=== PATIENT | female | born 1965 | race Caucasian/White ===

== ENCOUNTER 2018-03-01 13:23 | Emergency (ER) | payer OTHER ==
[2018-03-01 13:30] VITALS: TEMP 99; BMI 27.3
--- NOTE | 2018-03-01 13:56 | PDOC ---
Attending Attestation - HPI HPI: 03/01/18 14:42 The patient is a 52-year-old female, with a significant past medical history of chronic back pain, who presents to the ED with new onset of parathesia and change in sensation of her lower extremities. The patient states that she received her first epidural injection on 02/27/18 at [facility] with Dr. Lynn. Since then the patient has been experiencing prolonged parathesia in her lower extremities, which resolved after an extended PACU stay. She presents today because the parathesia returned in her left lower extremity and knee. She now is numb to pain and dull pressure in the left extremity. On exam, she states that her right lower extremity is now also beginning to feel numb. She also reports back pain that is worse than the normal back pain she experiences. She denies any fever, chills, nausea, vomiting, diarrhea, or abdominal pain. Denies any chest pain or shortness of breath. Denies any bowel or urinary incontinence. Allergies: ciprofloxacin, ciprofloxacin HCl PCP: Dr. Jackson Jamison <Eileen Morton - Last Filed: 03/01/18 14:42> - Resident Resident Name: Edwardo Haddad - ED Attending Attestation I have performed the following: I have examined & evaluated the patient, The case was reviewed & discussed with the resident, I agree w/resident's findings & plan, Exceptions are as noted - Physicial Exam PE: 03/01/18 16:48 Gen: aaox3, uncomfortable, cannot get comfortable on the stretcher Heart: +s1s2 reg lungs: cta b/l abd: soft, nt/nd +bs Ext: no c/c/e, decreased sensation L leg Back: +L paraspinal soft tissue swelling, midline ttp lumbar spine, pain with plantar flexion of both feet to lumbar spine, pain with straight leg raise b/l at 5degrees - Medical Decision Making 03/01/18 13:56 I, Dr. Brittny Bowie, DO, attest that this document has been prepared under my direction and personally reviewed by me in its entirety. I further attest, that it accurately reflects all work, treatment, procedures and medical decision -making performed by me. 03/01/18 14:45 a/p: 52yo female with midline back pain that radiates down L leg with numbness -soft tissue swelling just L lateral to spine, +midline ttp +straight leg raise b/l at 5 degrees -+palpation of the LLE increases pain to low back, plantar flexion of b/l feet increases pain, +paresthesias to LLE -concern give recent epidural injection to Lumbar spine by the [facility]-her pain management doc -will obtain labs, MRI w/wo to eval of epidural abscess -will medicate for pain -no signs of caude equina 03/01/18 16:48 pt with a UTI on labs pending MRI at this time will need abx for UTI <Brittny Bowie - Last Filed: 03/01/18 16:50>
--- NOTE | 2018-03-01 14:09 | PDOC ---
History of Present Illness - General Chief Complaint: Back Pain Stated Complaint: BACK PAIN, LT LEG NUMBNESS Time Seen by Provider: 03/01/18 13:51 History Source: Patient Exam Limitations: No Limitations - History of Present Illness Initial Comments: 03/01/18 14:19 52yo F with established history of chronic back pain who presents with worsening back pain and new parasthesia and changing sensorium in her lower extremities. Pt reports receiving an epidural injection for the first time this past at [facility] with Dr. Lynn. Pt states after her injection she had prolonged parasthesia in bilateral lower extremities however this resolved after an extended PACU stay. Pt reports recently at home her parasthesia returned in her left lower extremity and extended to her knee. Pt reports being numb to both pain and dull pressure. After her parasthesia she reports extreme sensitivity to touch inducing pain on her LLE and beginning RLE numbness. Pt also endorses back pain which has acutely worsened different in quality from her baseline. Pt denies any fever or chills, saddle parasthesias, incontinence, dysuria, or polyuria. Pt denies any current SOB, CP/discomfort, abdominal pain, diarrhea/constipation, n/v. Past History - Past Medical History Allergies/Adverse Reactions: Allergies Allergy/AdvReac Type Severity Reaction Status Date / Time ciprofloxacin [From Cipro] Allergy Verified 03/01/18 13:30 ciprofloxacin HCl Allergy Verified 03/01/18 13:30 [From Cipro] Sulfa (Sulfonamide Allergy Verified 03/01/18 13:30 Antibiotics) codeine AdvReac Low Blood Verified 03/01/18 13:30 Pressure oxycodone HCl [From Percocet] AdvReac Low Blood Verified 03/01/18 13:30 Pressure Home Medications: Ambulatory Orders Cholecalciferol (Vitamin D3) [Vitamin D] 1,000 unit PO DAILY 06/06/15 Cyanocobalamin (Vitamin B-12) [Vitamin B-12] 100 mcg PO DAILY 06/06/15 Metformin HCl [Metformin HCl ER] 500 mg PO BID 06/06/15 Multivitamins [Tab-A-Vit -] 1 tab PO DAILY 06/06/15 Lidocaine 5% Patch [Lidoderm Patch -] 1 patch TP DAILY #7 patch 03/01/18 Asthma: Yes (NO RECENT ATTACK) COPD: No Diabetes: Yes Disorders: Yes (ENDOMETRIOSIS., interstitial cystitis) Hypercholesterolemia: Yes - Surgical History Abdominal Surgery: Yes (Laparoscopy x2-EMDOMETRIOSIS) - Suicide/Smoking/Psychosocial Hx Smoking Status: No Smoking History: Never smoked Have you smoked in the past 12 months: No Number of Cigarettes Smoked Daily: 0 Hx Alcohol Use: No Drug/Substance Use Hx: No Substance Use Type: None Hx Substance Use Treatment: No Review of Systems - Review of Systems Constitutional: Yes: Weakness. No: Chills, Fever HEENTM: No: Blurred Vision, Nose Congestion, Throat Pain Respiratory: No: Cough, Shortness of Breath, Wheezing Cardiac (ROS): No: Chest Pain, Lightheadedness, Palpitations, Syncope, Chest Tightness ABD/GI: No: Abd. Pain w/ defecation, Constipated, Diarrhea, Nausea, Vomiting, Abdominal cramping : No: Dysuria, Discharge, Incontinence Musculoskeletal: Yes: Back Pain. No: Neck Pain Neurological: Yes: Numbness, Tingling. No: Headache, Pre-Existing Deficit Psychiatric: No: Anxiety, Depression Hematologic/Lymphatic: No: Easy Bleeding, Easy Bruising *Physical Exam - Vital Signs Last Vital Signs Temp Pulse Resp BP Pulse Ox 99 F 69 18 123/71 99 03/01/18 13:28 03/01/18 13:28 03/01/18 13:28 03/01/18 13:28 03/01/18 13:28 - Physical Exam Comments: 03/01/18 14:32 GEN: Mild distress, awake, alert, oriented HEENT: EOMI, DURAN, moist mucosa Neck: No neck stiffness LUNGS: CTA bilaterally CARDIAC: RRR no murmurs appreciated on exam ABD: Soft, NT/ND, normoactive BS, no guarding BACK: Tenderness to palpation on lower lumbar spine with evidence of injection site, no erythema noted, hot to touch with slight raised area of paraspinal musculature on L lower lumbar area EXT: No edema, 2+ DP and PT pulses bilaterally NEURO: CN II-XII intact, facial symmetry, patellar reflexes 2/4, decreased sensitivity to light touch on L4-L5 distribution of LLE, increased pain with touch on L foot compared to R, strength exam limited due to pain on LLE; RLE 5/ 5 strength. ED Treatment Course - LABORATORY CBC & Chemistry Diagram: 03/01/18 15:10 03/01/18 15:10 - RADIOLOGY Radiology Studies Ordered: Category Date Time Status LUMBAR SPINE MRI W&W/O CONTR [MRI] Stat MRI 03/01/18 14:00 Ordered Medical Decision Making - Medical Decision Making 03/01/18 14:09 52yo F with new numbness and tingling and altered lower extremity sensorium with extreme back pain s/p epidural injection --Highly suspicious for epidural absces --CBC, CMP, LA, ESR, CRP --MRI w/ and w/o contrast; MRI aware of patient --Doubt any cord compression syndrome/cauda equina syndrome --> no incontinence, numbness and tingling not stereotypical saddle parasthesia --Toradol 30mg IVP, Prednisone 60mg, Morphine 2mg (pt states morphine she does okay with but other forms of codeine and oxycodone she has had an acute drop in BP 03/01/18 15:21 Pt reported feeling itchy after the Morphine dose --Benadryl administered; will monitor for other signs of developing reaction 03/01/18 15:28 CBC unremarkable including 8,000 WBC 03/01/18 19:58 Lumbar MRI reports shows no evidence of epidural or soft tissue abscess Pt allowed to eat Explained to patient that this may be due to her worsening disc disease and how it would be in her best benefit to visit her spinal physician and pain management physician. Also, discussed about a trial of Flexeril 5mg by mouth. Pt has never had and does not have any reaction with muscles relaxants documented. --Flexeril 10mg PO 03/01/18 21:01 Pt reports being able to see her pain management doctor on Saturday. She also reports the flexeril didn't really aid in her pain. Unfortunately due to her allergies I explained that her pain mitigation is limited. 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 Pt also found to have bacteruria however is asymptomatic. Pt is not or premenopausal thus would not benefit from treating asymptomatic bacteruria. Will obtain culture and inform her of any growth. Can also send lidoderm patch to her pharmacy to try to mitigate some back pain until her pain specialist appointment *DC/Admit/Observation/Transfer Diagnosis at time of Disposition: Back pain Qualifiers: Back pain location: low back pain Chronicity: chronic Back pain laterality: bilateral Sciatica presence: with sciatica Sciatica laterality: bilateral sciatica Qualified Code(s): M54.42 - Lumbago with sciatica, left side - Discharge Dispostion Disposition: HOME Condition at time of disposition: Stable Admit: No - Referrals Referrals: Jackson Jamison MD [Primary Care Provider] - - Patient Instructions Additional Instructions: You were seen here for your back pain. Your MRI did not show any evidence of an abscess of the spine or soft tissues. Your labwork was unremarkable Unfortunately your back pain can be attributed to worsening degenerative changes Your urine analysis showed you had some bacteria in your urine. We have obtained a culture and will inform you of any bacteria growth that occurs. We have sent Lidoderm patches to your pharmacy to help mitigate some pain. Please follow-up with your pain specialist as soon as possible. - Post Discharge Activity
[2018-03-01] MEDS ORDERED: predniSONE 20 MG TABLET (UD) PO ONE (14:21)
[2018-03-01] MEDS ORDERED: morphine CARPU-JECT 2 MG/1 ML DISP.SYRIN IVPUSH ONE (14:21)
[2018-03-01] MEDS ORDERED: KETOROLAC TROMETHAMINE 30 MG/1 ML VIAL IVPUSH ONE (14:22)
[2018-03-01] MEDS ORDERED: predniSONE 20 MG TABLET (UD) ONE (14:57)
[2018-03-01] MEDS ORDERED: morphine SULFATE 4 MG/ML VIAL ONE (14:58)
[2018-03-01] MEDS ORDERED: KETOROLAC TROMETHAMINE 30 MG/1 ML VIAL ONE (14:58)
[2018-03-01] MEDS ORDERED: FAMOTIDINE 20 MG/50 ML IVPB 20 MG/50 ML MG IVPB ONE (15:09)
[2018-03-01 15:14] LABS: BASO % 0.5 % (0-2.0); EOS % 1.6 % (0-4.5); HEMATOCRIT 40.3 % (32.4-45.2); HEMOGLOBIN 13.8 GM/dL (10.7-15.3); LYMPH % 20.6 % (8-40); MCH 30.7 pg (25.7-33.7); MCHC 34.3 g/dl (32.0-36.0); MEAN CELL VOLUME 89.3 fl (80-96); MEAN PLT VOLUME 9.8 fl (7.5-11.1); NEUT % 70.3 % (42.8-82.8); PLATELET COUNT 222 K/MM3 (134-434); RBC 4.51 M/mm3 (3.60-5.2); RDW 12.8 % (11.6-15.6); WHITE BLOOD COUNT 8.2 K/mm3 (4.0-10.0)
[2018-03-01 15:40] LABS: ALBUMIN 3.7 g/dl (3.4-5.0); ALK PHOS 88 U/L (45-117); ANION GAP 7 (8-16); BILIRUBIN,TOTAL 0.7 mg/dL (0.2-1.0); BLOOD UREA NITROGEN 18 mg/dL (7-18); CALCIUM 8.3 mg/dL (8.5-10.1); CHLORIDE 106 mmol/L (98-107); CO2 27 mmol/L (21-32); CREATININE 0.9 mg/dL (0.55-1.02); GLUCOSE,RANDOM 125 mg/dL (74-106); POTASSIUM 4.2 mmol/L (3.5-5.1); SGOT/AST 15 U/L (15-37); SGPT/ALT 20 U/L (12-78); SODIUM 140 mmol/L (136-145); TOT PROT 6.9 g/dl (6.4-8.2)
[2018-03-01 16:01] LABS: URINE APPEARANCE SLCLOUDY; URINE BILIRUBIN NEGATIVE (<2.0 mg/dL); URINE COLOR YELLOW; URINE GLUCOSE (UA) NEGATIVE (NEGATIVE); URINE KETONE NEGATIVE (NEGATIVE); URINE NITRITE NEGATIVE (NEGATIVE); URINE PROTEIN NEGATIVE (NEGATIVE); URINE UROBILINOGEN 4.0 E.U/dl mg/dL (0.2-1.0)
[2018-03-01 16:20] LABS: URINE LEUK ESTERASE 1+ (NEGATIVE)
[2018-03-01 16:22] LABS: EPI CELLS RARE /HPF (FEW); URINE BACTERIA MODERATE /hpf (NONE SEEN); URINE HYALINE CAST 3 /lpf; URINE MUCUS RARE
[2018-03-01 16:49] LABS: ERYTHROCYTE SEDIMENTATION RATE 16 mm/hr (0-30)
[2018-03-01 18:18] VITALS: BP 103/58; PULSE 53
[2018-03-01] MEDS ORDERED: CYCLOBENZAPRINE HCL 10 MG TABLET (FP) PO ONE ×2 (20:01→20:36)
[2018-03-01] MEDS ORDERED: CYCLOBENZAPRINE HCL 10 MG TABLET (FP) ONE (20:24)
== END 2018-03-01 22:11 | disposition home or self-care (01) ==
LOC: JER 13:23
PROC: 3E033GC Introduction of Other Therapeutic Substance into Peripheral Vein, Percutaneous Approach (ICD-10-PCS; principal; 2018-03-01)
PROC: 3E033NZ Introduction of Analgesics, Hypnotics, Sedatives into Peripheral Vein, Percutaneous Approach (ICD-10-PCS; 2018-03-01)
PROC: 3E0333Z Introduction of Anti-inflammatory into Peripheral Vein, Percutaneous Approach (ICD-10-PCS; 2018-03-01)
PROC: 3E033GC Introduction of Other Therapeutic Substance into Peripheral Vein, Percutaneous Approach (ICD-10-PCS; 2018-03-01)
DX: M54.42 Lumbago with sciatica, left side (principal); E78.00 Pure hypercholesterolemia, unspecified; E11.9 Type 2 diabetes mellitus without complications; Z79.84 Long term (current) use of oral hypoglycemic drugs; Z87.09 Personal history of other diseases of the respiratory system
CPT/HCPCS: 36415; 72158-TC; 80053; 81003; 81015; 83605; 85025; 85651; 86140; 96365; 96375; 99283-25

== ENCOUNTER 2019-06-08 18:01 | Emergency (ER) | payer MEDICARE, OTHER ==
--- NOTE | 2019-06-08 18:27 | PDOC ---
Rapid Medical Evaluation Time Seen by Provider: 06/08/19 18:26 Medical Evaluation: Allergies Allergy/AdvReac Type Severity Reaction Status Date / Time ciprofloxacin [From Cipro] Allergy Verified 03/01/18 13:30 ciprofloxacin HCl Allergy Verified 03/01/18 13:30 [From Cipro] Sulfa (Sulfonamide Allergy Verified 03/01/18 13:30 Antibiotics) codeine AdvReac Low Blood Verified 03/01/18 13:30 Pressure oxycodone HCl [From Percocet] AdvReac Low Blood Verified 03/01/18 13:30 Pressure 06/08/19 18:26 HPI: R wrist pain after fall this am PE: No gross deficits ORDERS: X-ray Discharge Disposition - Diagnosis Wrist pain - Referrals - Patient Instructions - Post Discharge Activity
--- NOTE | 2019-06-08 18:45 | PDOC ---
History of Present Illness - General Chief Complaint: Injury Stated Complaint: INJURY TO RT WRIST Time Seen by Provider: 06/08/19 18:26 - History of Present Illness Initial Comments: 06/08/19 18:42 CHIEF COMPLAINT: Pain to R wrist HISTORY OF PRESENT ILLNESS: 53 yo F presents to fast track with R wrist pain s/ p fall. Patient reports she was at a park this morning walking up some stairs when she lost her balance and fell. She tried to catch herself and landed on her R hand. Patient c/o of pain with movement of R wrist but especially with extension. No recent travel or sick contacts. PAST MEDICAL HISTORY: Denies past medical history FAMILY HISTORY: Denies SOCIAL HISTORY: Denies tobacco, alcohol, illicit drug use. SURGICAL HISTORY: Denies ALLERGIES: cipro, codeine, oxycodone, sulfa REVIEW OF SYSTEMS General/Constitutional: Denies fever or chills. Denies weakness, weight change. HEENT: Denies change in vision. Denies ear pain or discharge. Denies sore throat. Cardiovascular: Denies chest pain or shortness of breath. Respiratory: Denies cough, wheezing, or hemoptysis. Gastrointestinal: Denies nausea, vomiting, diarrhea or constipation. Denies rectal bleeding. Genitourinary: Denies dysuria, frequency, or change in urination. Musculoskeletal: Pain to R wrist with movement. Skin and breasts: Denies rash or easy bruising. Neurologic: Denies headache, vertigo, loss of consciousness, or loss of sensation. PHYSICAL EXAM General Appearance: Well-appearing, appropriately dressed. No apparent distress , no intoxication. HEENT: EOMI, PERRLA, normal ENT inspection, normal voice, TMs normal, pharynx normal. No conjunctival pallor. No photophobia, scleral icterus. Neck: Supple. Trachea midline. No tenderness, rigidity, carotid bruit, stridor , lymphadenopathy, or thyromegaly. Respiratory/Chest: Lungs CTAB. No shortness of breath, chest tenderness, respiratory distress, accessory muscle use. No crackles, rales, rhonchi, stridor , wheezing, dullness Cardiovascular: RRR. S1, S2. No JVD, murmur, bradycardia, tachycardia. Vascular Pulses: Dorsalis-Pedis (R): 2+, Dorsalis-Pedis (L): 2+ Gastrointestinal/Abdominal: Normal bowel sounds. Abdomen soft, non-distended. No tenderness or rebound tenderness. No organomegaly, pulsatile mass, guarding , hernia, hepatomegaly, splenomegaly. Lymphatic: No adenopathy, tenderness. Musculoskeletal/Extremities: Pain elicited with extension of R wrist. No deformities, no ecchymosis, hematoma, erythema, or significant swelling to R wrist. No snuffbox tenderness. . FROM of all other extremities, normal capillary refill. Pelvis Stable. No CVA tenderness. Integumentary: Appropriate color, dry, warm. No cyanosis, erythema, jaundice or rash Neurologic: change analyst II-XII intact. Fully oriented, alert. Appropriate mood/affect. Motor strength 5/5. No appreciable EOM palsy, facial droop or sensory deficit. Past History - Past Medical History Allergies/Adverse Reactions: Allergies Allergy/AdvReac Type Severity Reaction Status Date / Time ciprofloxacin [From Cipro] Allergy Verified 06/08/19 18:27 ciprofloxacin HCl Allergy Verified 06/08/19 18:27 [From Cipro] Sulfa (Sulfonamide Allergy Verified 06/08/19 18:27 Antibiotics) codeine AdvReac Low Blood Verified 06/08/19 18:27 Pressure oxycodone HCl [From Percocet] AdvReac Low Blood Verified 06/08/19 18:27 Pressure Home Medications: Ambulatory Orders Cholecalciferol (Vitamin D3) [Vitamin D] 1,000 unit PO DAILY 06/06/15 Cyanocobalamin (Vitamin B-12) [Vitamin B-12] 100 mcg PO DAILY 06/06/15 Multivitamins [Tab-A-Vit -] 1 tab PO DAILY 06/06/15 Aspirin 81 mg PO DAILY 06/08/19 Cyclobenzaprine HCl [Flexeril -] 5 mg PO HS 06/08/19 Diclofenac Sodium 50 mg PO BID #20 tablet. 06/08/19 Diclofenac Sodium [Diclo Gel] 1 each TP ASDIR 06/08/19 Insulin Glargine,Hum.rec.anlog [Basaglar Kwikpen U-100] 22 unit SQ DAILY Linaclotide [Linzess] 72 mcg PO DAILY 06/08/19 Naproxen [Naprosyn -] 500 mg PO BID 06/08/19 Pantoprazole Sodium [Protonix -] 40 mg PO DAILY 06/08/19 Asthma: Yes (NO RECENT ATTACK) COPD: No Diabetes: Yes Disorders: Yes (ENDOMETRIOSIS., interstitial cystitis) Hypercholesterolemia: Yes - Surgical History Abdominal Surgery: Yes (Laparoscopy x2-EMDOMETRIOSIS) - Suicide/Smoking/Psychosocial Hx Smoking Status: No Smoking History: Never smoked Have you smoked in the past 12 months: No Number of Cigarettes Smoked Daily: 0 Hx Alcohol Use: No Drug/Substance Use Hx: No Substance Use Type: None Hx Substance Use Treatment: No Medical Decision Making - Medical Decision Making 06/08/19 18:53 53 yo F presents to fast track with R wrist pain s/p fall. -wrist x-ray 06/08/19 19:45 x-ray neg for fracture. wrist immobilizer, NSAIDS *DC/Admit/Observation/Transfer Diagnosis at time of Disposition: Wrist sprain - Discharge Dispostion Disposition: HOME Condition at time of disposition: Stable Decision to Admit order: No - Prescriptions Prescriptions: Diclofenac Sodium 50 mg PO BID #20 tablet.dr - Referrals - Patient Instructions Printed Discharge Instructions: DI for Wrist Sprain - Post Discharge Activity
== END 2019-06-08 20:12 | disposition home or self-care (01) ==
LOC: JERFT 18:01
DX: S63.501A Unspecified sprain of right wrist, initial encounter (principal); W01.0XXA Fall on same level from slipping, tripping and stumbling without subsequent striking against object, initial encounter; Y93.01 Activity, walking, marching and hiking; Y92.89 Other specified places as the place of occurrence of the external cause; E11.9 Type 2 diabetes mellitus without complications; E78.00 Pure hypercholesterolemia, unspecified; Z79.4 Long term (current) use of insulin; Z88.1 Allergy status to other antibiotic agents; Z88.2 Allergy status to sulfonamides; Z88.5 Allergy status to narcotic agent; Z88.6 Allergy status to analgesic agent; Z79.82 Long term (current) use of aspirin
CPT/HCPCS: 73110-TC-RT-FY; 99281-25

== ENCOUNTER 2019-11-04 09:26 | Emergency (ER) | payer MEDICARE, OTHER ==
[2019-11-04 09:34] VITALS: TEMP 98.7; BMI 27.1
[2019-11-04] MEDS ORDERED: METOCLOPRAMIDE HCL INJECTION 10 MG/2 ML VIAL IVPB ONE (09:57)
[2019-11-04] MEDS ORDERED: SODIUM CHLORIDE 1,000 ML IV STA (09:57)
[2019-11-04] MEDS ORDERED: ACETAMINOPHEN 1000 MG/100 ML VIAL (NON FORMULARY) IVPB ONE (09:57)
[2019-11-04] MEDS ORDERED: METOCLOPRAMIDE HCL INJECTION 10 MG/2 ML VIAL ONE (10:15)
[2019-11-04] MEDS ORDERED: ACETAMINOPHEN INJECTION 100 ML IVPB ONE (10:15)
[2019-11-04] MEDS ORDERED: DEXAMETHASONE SOD PHOSPHATE 10 MG/1 ML VIAL IVPUSH ONE (12:12)
[2019-11-04 12:14] VITALS: BP 144/82; PULSE 63
[2019-11-04] MEDS ORDERED: DEXAMETHASONE SOD PHOSPHATE 10 MG/1 ML VIAL ONE (12:55)
--- NOTE | 2019-11-04 13:09 | PDOC ---
History of Present Illness - General Chief Complaint: Migraine Headache Stated Complaint: MIGRAINE Time Seen by Provider: 11/04/19 09:43 History Source: Patient Exam Limitations: No Limitations Past History - Past Medical History Allergies/Adverse Reactions: Allergies Allergy/AdvReac Type Severity Reaction Status Date / Time ciprofloxacin [From Cipro] Allergy Verified 06/08/19 18:27 ciprofloxacin HCl Allergy Verified 06/08/19 18:27 [From Cipro] Sulfa (Sulfonamide Allergy Verified 06/08/19 18:27 Antibiotics) codeine AdvReac Low Blood Verified 06/08/19 18:27 Pressure oxycodone HCl [From Percocet] AdvReac Low Blood Verified 06/08/19 18:27 Pressure Home Medications: Ambulatory Orders Insulin Glargine,Hum.rec.anlog [Basaglar Kwikpen U-100] 25 unit SQ DAILY Asthma: Yes (NO RECENT ATTACK) COPD: No Diabetes: Yes Disorders: Yes (ENDOMETRIOSIS., interstitial cystitis) Hypercholesterolemia: Yes - Surgical History Abdominal Surgery: Yes (Laparoscopy x2-EMDOMETRIOSIS) - Immunization History Immunization Up to Date: Yes - Psycho Social/Smoking Cessation Hx Smoking Status: No Smoking History: Never smoked Have you smoked in the past 12 months: No Number of Cigarettes Smoked Daily: 0 Information on smoking cessation initiated: No Hx Alcohol Use: No Drug/Substance Use Hx: No Substance Use Type: None Hx Substance Use Treatment: No *Physical Exam - Vital Signs Last Vital Signs Temp Pulse Resp BP Pulse Ox 98.7 F 63 18 144/82 99 11/04/19 09:31 11/04/19 12:13 11/04/19 12:13 11/04/19 12:13 11/04/19 12:13 - Physical Exam General Appearance: No: Apparent Distress HEENT: positive: EOMI, MAURISIO Respiratory/Chest: positive: Lungs Clear, Normal Breath Sounds. negative: Respiratory Distress Cardiovascular: positive: Regular Rhythm, Regular Rate, S1, S2. negative: Murmur Neurologic: positive: rn er II-XII NML intact, Fully Oriented, Alert, Normal Mood/ Affect, Motor Strength 5/5, Other (normal gait) ED Treatment Course - Medications Given in the ED: ED Medications Discontinued Medications Generic Name Dose Route Start Last Admin Trade Name Freq PRN Reason Stop Dose Admin Acetaminophen 1,000 mg 11/04/19 09:57 11/04/19 10:40 Ofirmev Injection - IVPB 11/04/19 09:58 1,000 mg ONCE ONE Administration Diphenhydramine HCl 50 mg 11/04/19 09:57 11/04/19 10:30 Benadryl Injection - IVPUSH 11/04/19 09:58 50 mg ONCE ONE Administration Sodium Chloride 1,000 mls @ 1,000 mls/hr 11/04/19 09:57 11/04/19 10:30 Normal Saline - IV 11/04/19 10:56 1,000 mls/hr ASDIR STA Administration Metoclopramide HCl 10 mg 11/04/19 09:57 11/04/19 10:20 Reglan Injection - IVPB 11/04/19 09:58 10 mg ONCE ONE Administration Medical Decision Making - Medical Decision Making 53 y/o F hx of spina bifida, HLD, endometriosis, migraines, asthma, DM, R acoustic neuroma presents with generalized headache and R sided facial pressure , typical of her migraines. Has had migraines since age 6 and is currently taking Eletriptan, but states medication is not working. Patient is following with neurology as well and last saw them yesterday but states they can't do anything as she is still pending approval from her insurance for a new migraine medication. Patient is also pending surgery for removal of tumor for the acoustic neuroma. Has intermittent vomiting from her migraines. Denies numbness/ tingling/weakness of extremities, sob, cp, abd pain. Migraine Given IVF, Tylenol, Reglan, Benadryl and Decadron Patient feeling much better on reassessment stable for dc 11/04/19 13:06 Discharge - Discharge Information Problems reviewed: Yes Clinical Impression/Diagnosis: Migraine Qualifiers: Migraine type: without aura Status migrainosus presence: without status migrainosus Intractability: not intractable Qualified Code(s): G43.009 - Migraine without aura, not intractable, without status migrainosus Condition: Improved Disposition: HOME - Admission No - Additional Discharge Information Prescription Drug Monitoring Program (I-STOP) results: I-STOP not reviewed - Follow up/Referral Referrals: Jackson Jamison MD [Primary Care Provider] - 2 Days - Patient Discharge Instructions Patient Printed Discharge Instructions: DI for Migraine Additional Instructions: Thank you for choosing [facility]. It was a pleasure taking care of you. Please continue followup with your neurologist regarding your migraines Return to the Emergency Department if your symptoms worsen or persist, you have fever, weakness of extremities (arms and/or legs), changes in vision or walking or other concerning symptoms. - Post Discharge Activity
== END 2019-11-04 13:37 | disposition home or self-care (01) ==
LOC: JER 09:26
PROC: 3E033GC Introduction of Other Therapeutic Substance into Peripheral Vein, Percutaneous Approach (ICD-10-PCS; principal; 2019-11-04)
PROC: 3E033NZ Introduction of Analgesics, Hypnotics, Sedatives into Peripheral Vein, Percutaneous Approach (ICD-10-PCS; 2019-11-04)
DX: G43.009 Migraine without aura, not intractable, without status migrainosus (principal); Z88.8 Allergy status to other drugs, medicaments and biological substances; Z88.2 Allergy status to sulfonamides; E78.5 Hyperlipidemia, unspecified; Q05.9 Spina bifida, unspecified; E11.9 Type 2 diabetes mellitus without complications; J45.909 Unspecified asthma, uncomplicated
CPT/HCPCS: 99283-25; J0131; J1100; J7030

== ENCOUNTER 2020-10-20 13:01 | Emergency (ER) | payer MEDICARE, OTHER ==
[2020-10-20 13:47] VITALS: BMI 32.3
[2020-10-20] MEDS ORDERED: SODIUM CHLORIDE 0.9% 500 ML INFUS.BAG IV ONE (13:58)
[2020-10-20] MEDS ORDERED: ONDANSETRON 4 MG/2 ML VIAL IVPUSH PRN (13:59)
[2020-10-20] MEDS ORDERED: ACETAMINOPHEN 1000 MG/100 ML VIAL (NON FORMULARY) IVPB ONE (13:59)
[2020-10-20] MEDS ORDERED: ONDANSETRON 4 MG/2 ML VIAL ONE (14:03)
[2020-10-20] MEDS ORDERED: ACETAMINOPHEN INJECTION 100 ML IVPB ONE (14:03)
[2020-10-20 14:36] LABS: BASO % 0.5 % (0-2.0); EOS % 0.2 % (0-4.5); HEMATOCRIT 40.9 % (32.4-45.2); HEMOGLOBIN 13.5 GM/dL (10.7-15.3); LYMPH % 10.8 % (8-40); MCH 30.2 pg (25.7-33.7); MCHC 33.1 g/dl (32.0-36.0); MEAN CELL VOLUME 91.2 fl (80-96); MEAN PLT VOLUME 10.1 fl (7.5-11.1); MONO % 5.2 % (3.8-10.2); NEUT % 83.3 % (42.8-82.8); PLATELET COUNT 210 K/MM3 (134-434); RBC 4.48 M/mm3 (3.60-5.2); RDW 12.9 % (11.6-15.6); WHITE BLOOD COUNT 10.1 K/mm3 (4.0-10.0)
[2020-10-20 14:54] LABS: CHLORIDE 108 mmol/L (98-107); POTASSIUM 3.9 mmol/L (3.5-5.1); SODIUM 140 mmol/L (136-145)
[2020-10-20 14:55] LABS: CALCIUM 8.7 mg/dL (8.5-10.1)
[2020-10-20 14:56] LABS: ALBUMIN 3.9 g/dl (3.4-5.0); ANION GAP 7 MMOL/L (8-16); BLOOD UREA NITROGEN 9.9 mg/dL (7-18); CO2 25 mmol/L (21-32); GLUCOSE,RANDOM 223 mg/dL (74-106)
[2020-10-20 14:59] LABS: SGOT/AST 22 U/L (15-37); SGPT/ALT 36 U/L (13-61)
[2020-10-20 15:02] LABS: ALK PHOS 87 U/L (45-117)
[2020-10-20 15:05] LABS: BILIRUBIN,TOTAL 0.8 mg/dL (0.2-1)
[2020-10-20 15:49] LABS: EPI CELLS 12 /uL (0-25.1); HYALINE CASTS 0 /uL (0-3.1); PH,URINE 7.5 (5.0-8.0); URINE APPEARANCE CLEAR; URINE BACTERIA 132 /uL (0-1359); URINE BILIRUBIN NEGATIVE (NEGATIVE); URINE COLOR YELLOW; URINE GLUCOSE (UA) 3+ (NEGATIVE); URINE KETONE 1+ (NEGATIVE); URINE LEUK ESTERASE NEGATIVE (NEGATIVE); URINE NITRITE NEGATIVE (NEGATIVE); URINE PROTEIN NEGATIVE (NEGATIVE); URINE RBC 97 /uL (0-23.9); URINE UROBILINOGEN 0.2 mg/dL (0.2-1.0); URINE WBC 4 /uL (0-25.8)
[2020-10-20] MEDS ORDERED: morphine CARPU-JECT 4 MG/1 ML DISP.SYRIN IVPUSH ONE (16:09)
[2020-10-20] MEDS ORDERED: morphine SULFATE 4 MG/ML VIAL ONE (16:13)
[2020-10-20 18:23] VITALS: TEMP 98.1
[2020-10-20 19:56] VITALS: BP 129/62; PULSE 58
== END 2020-10-20 19:56 | disposition home or self-care (01) ==
LOC: JER 13:01
PROC: 3E033GC Introduction of Other Therapeutic Substance into Peripheral Vein, Percutaneous Approach (ICD-10-PCS; principal; 2020-10-20)
DX: N20.0 Calculus of kidney (principal); R11.2 Nausea with vomiting, unspecified
CPT/HCPCS: 36415; 71045-TC-FY; 74176-TC; 80053; 81003; 83605; 84484; 85025; 87086; 93005; 93010; 96374; 96375; 99285-25; C9803; J0131; U0003

== ENCOUNTER 2021-05-10 10:41 | Emergency (ER) | payer MEDICARE, OTHER ==
[2021-05-10 10:50] VITALS: BMI 31.2
[2021-05-10] MEDS ORDERED: SODIUM CHLORIDE 1,000 ML IV STA (11:05)
[2021-05-10] MEDS ORDERED: METOCLOPRAMIDE HCL INJECTION 10 MG/2 ML VIAL IVPUSH ONE (11:06)
[2021-05-10] MEDS ORDERED: ACETAMINOPHEN 1000 MG/100 ML VIAL (NON FORMULARY) IVPB ONE (11:06)
[2021-05-10] MEDS ORDERED: ACETAMINOPHEN INJECTION 100 ML IVPB ONE (12:10)
[2021-05-10] MEDS ORDERED: METOCLOPRAMIDE HCL INJECTION 10 MG/2 ML VIAL ONE (12:10)
[2021-05-10 12:15] LABS: BASO % 0.5 % (0-2.0); EOS % 0.3 % (0-4.5); HEMATOCRIT 45.4 % (32.4-45.2); HEMOGLOBIN 15.1 GM/dL (10.7-15.3); LYMPH % 16.1 % (8-40); MCH 30.1 pg (25.7-33.7); MCHC 33.3 g/dl (32.0-36.0); MEAN CELL VOLUME 90.4 fl (80-96); MEAN PLT VOLUME 9.5 fl (7.5-11.1); MONO % 10.7 % (3.8-10.2); NEUT % 72.4 % (42.8-82.8); PLATELET COUNT 184 10^3/uL (134-434); RBC 5.03 M/mm3 (3.60-5.2); WHITE BLOOD COUNT 5.9 K/mm3 (4.0-10.0)
[2021-05-10 12:35] LABS: CHLORIDE 104 mmol/L (98-107); SODIUM 138 mmol/L (136-145)
[2021-05-10 12:37] LABS: CALCIUM 8.8 mg/dL (8.5-10.1)
[2021-05-10 12:38] LABS: ALBUMIN 3.9 g/dl (3.4-5.0); ANION GAP 7 MMOL/L (8-16); BLOOD UREA NITROGEN 13.9 mg/dL (7-18); CO2 27 mmol/L (21-32); GLUCOSE,RANDOM 283 mg/dL (74-106); MAGNESIUM 2.2 mg/dL (1.8-2.4)
[2021-05-10 12:41] LABS: SGOT/AST 30 U/L (15-37); SGPT/ALT 49 U/L (13-61)
[2021-05-10 12:43] LABS: BILIRUBIN,TOTAL 1.1 mg/dL (0.2-1); TOT PROT 7.4 g/dl (6.4-8.2)
[2021-05-10 12:44] LABS: ALK PHOS 98 U/L (45-117)
[2021-05-10] MEDS ORDERED: KETOROLAC TROMETHAMINE 30 MG/1 ML VIAL IVPUSH ONE (13:40)
[2021-05-10 15:55] VITALS: BP 110/78; PULSE 89; TEMP 98.7
== END 2021-05-10 15:55 | disposition home or self-care (01) ==
LOC: JER 10:41
PROC: 3E0333Z Introduction of Anti-inflammatory into Peripheral Vein, Percutaneous Approach (ICD-10-PCS; principal; 2021-05-10)
PROC: 3E033GC Introduction of Other Therapeutic Substance into Peripheral Vein, Percutaneous Approach (ICD-10-PCS; 2021-05-10)
PROC: 3E0333Z Introduction of Anti-inflammatory into Peripheral Vein, Percutaneous Approach (ICD-10-PCS; 2021-05-10)
PROC: 3E033GC Introduction of Other Therapeutic Substance into Peripheral Vein, Percutaneous Approach (ICD-10-PCS; 2021-05-10)
PROC: 3E0337Z Introduction of Electrolytic and Water Balance Substance into Peripheral Vein, Percutaneous Approach (ICD-10-PCS; 2021-05-10)
DX: U07.1 COVID-19 (principal)
CPT/HCPCS: 36415; 71046-TC-FY; 80053; 82550; 83735; 84484; 85025; 93005; 93010; 96361; 96374; 96375; 99285-25; C9803; J0131; U0003; U0005

== ENCOUNTER 2021-05-15 10:54 | Emergency (ER) | payer MEDICARE, OTHER ==
[2021-05-15] MEDS ORDERED: ACETAMINOPHEN 1000 MG/100 ML VIAL (NON FORMULARY) IVPB ONE (11:30)
[2021-05-15] MEDS ORDERED: SODIUM CHLORIDE 0.9% 500 ML INFUS.BAG IV ONE (11:30)
[2021-05-15 11:42] VITALS: BMI 31.2
[2021-05-15] MEDS ORDERED: ONDANSETRON 4 MG/2 ML VIAL IVPUSH ONE (11:51)
[2021-05-15] MEDS ORDERED: ONDANSETRON 4 MG/2 ML VIAL ONE (11:52)
[2021-05-15] MEDS ORDERED: ACETAMINOPHEN INJECTION 100 ML IVPB ONE (11:52)
[2021-05-15 12:21] LABS: BASO % 0.3 % (0-2.0); EOS % 0.1 % (0-4.5); HEMATOCRIT 42.7 % (32.4-45.2); HEMOGLOBIN 14.5 GM/dL (10.7-15.3); LYMPH % 24.8 % (8-40); MCH 30.3 pg (25.7-33.7); MCHC 33.8 g/dl (32.0-36.0); MEAN CELL VOLUME 89.4 fl (80-96); MEAN PLT VOLUME 9.6 fl (7.5-11.1); MONO % 4.7 % (3.8-10.2); NEUT % 70.1 % (42.8-82.8); PLATELET COUNT 121 10^3/uL (134-434); RBC 4.78 M/mm3 (3.60-5.2); RDW 12.9 % (11.6-15.6)
[2021-05-15 12:26] LABS: INR 1.12 (0.83-1.09); PROTHROMBIN TIME (PATIENT) 13.5 SEC (9.7-13.0)
[2021-05-15 12:27] LABS: VENOUS BASE EXCESS 0.4 mmol/L (-2-2); VENOUS O2 SATURATION 57.8 % (70-80); VENOUS PCO2 38.8 mmHg (38-52); VENOUS PH 7.422 (7.310-7.410)
[2021-05-15 12:29] LABS: ACTIVATED PTT 29.2 SECONDS (25.2-36.5)
[2021-05-15 12:36] LABS: CHLORIDE 106 mmol/L (98-107); SODIUM 138 mmol/L (136-145)
[2021-05-15 12:41] LABS: ALBUMIN 3.5 g/dl (3.4-5.0); ANION GAP 10 MMOL/L (8-16); BLOOD UREA NITROGEN 17.4 mg/dL (7-18); CALCIUM 8.1 mg/dL (8.5-10.1); CO2 22 mmol/L (21-32); GLUCOSE,RANDOM 152 mg/dL (74-106)
[2021-05-15 12:44] LABS: BILIRUBIN,DIRECT 0.3 mg/dL (0.0-0.2); SGOT/AST 31 U/L (15-37); SGPT/ALT 43 U/L (13-61)
[2021-05-15 12:46] LABS: BILIRUBIN,TOTAL 0.9 mg/dL (0.2-1); LDH 252 U/L (84-246)
[2021-05-15 12:47] LABS: ALK PHOS 87 U/L (45-117)
[2021-05-15] MEDS ORDERED: METOCLOPRAMIDE HCL INJECTION 10 MG/2 ML VIAL IVPUSH ONE (12:52)
[2021-05-15] MEDS ORDERED: guaiFENesin/D-M SUGAR-FREE/ACLHOL-FREE 118 ML BOTTLE PO ONE (13:10)
[2021-05-15] MEDS ORDERED: METOCLOPRAMIDE HCL INJECTION 10 MG/2 ML VIAL ONE (13:19)
[2021-05-15] MEDS ORDERED: LACTATED RINGERS SOLUTION 1000 ML INFUS.BAG IV ONE (14:14)
[2021-05-15] MEDS ORDERED: CASIRIVIMAB (REGN10933) 600 MG, IMDEVIMAB (REGN10987) 600 MG in SODIUM CHLORIDE 100 ML IVPB ONE (14:49)
[2021-05-15] MEDS ORDERED: KETOROLAC TROMETHAMINE 15 MG/ML VIAL IVPUSH ONE (15:40)
[2021-05-15] MEDS ORDERED: KETOROLAC TROMETHAMINE 15 MG/ML VIAL ONE (16:11)
[2021-05-15] MEDS ORDERED: IBUPROFEN 400 MG TABLET (FP) PO ONE ×2 (17:53→17:58)
[2021-05-15] MEDS ORDERED: ACETAMINOPHEN 500 MG TABLET (FP) PO ONE (20:31)
[2021-05-15] MEDS ORDERED: ACETAMINOPHEN 325 MG TABLET (FP) ONE (20:31)
[2021-05-15 20:43] VITALS: BP 98/52; PULSE 59; TEMP 98.8
[2021-05-15] MEDS ORDERED: ONDANSETRON *ODT* 4 MG TABLET SL ONE (23:00)
== END 2021-05-16 00:07 | disposition home or self-care (01) ==
LOC: JER 10:54
PROC: 3E0333Z Introduction of Anti-inflammatory into Peripheral Vein, Percutaneous Approach (ICD-10-PCS; principal; 2021-05-15)
PROC: 3E03329 Introduction of Other Anti-infective into Peripheral Vein, Percutaneous Approach (ICD-10-PCS; 2021-05-15)
PROC: 3E0333Z Introduction of Anti-inflammatory into Peripheral Vein, Percutaneous Approach (ICD-10-PCS; 2021-05-15)
PROC: 3E033GC Introduction of Other Therapeutic Substance into Peripheral Vein, Percutaneous Approach (ICD-10-PCS; 2021-05-15)
DX: U07.1 COVID-19 (principal); M79.10 Myalgia, unspecified site; R07.9 Chest pain, unspecified
CPT/HCPCS: 36415; 71045-TC-FY; 71275-TC; 80053; 82248; 82550; 82728; 82803; 83605; 83615; 84484; 85025; 85379; 85610; 85730; 86140; 87040; 93005; 93010; 96374; 96375; 99285-25; J0131; M0243; Q0243; Q9967

== ENCOUNTER 2021-11-10 11:09 | Emergency (ER) | payer MEDICARE ==
[2021-11-10 11:39] VITALS: TEMP 97.4; BMI 30.7
[2021-11-10] MEDS ORDERED: ACETAMINOPHEN 325 MG TABLET (FP) PO ONE (12:42)
[2021-11-10] MEDS ORDERED: ACETAMINOPHEN 325 MG TABLET (FP) ONE (12:49)
[2021-11-10 13:35] LABS: BASO % 0.7 % (0-2.0); EOS % 2.5 % (0-4.5); HEMATOCRIT 40.6 % (32.4-45.2); HEMOGLOBIN 13.3 GM/dL (10.7-15.3); LYMPH % 39.1 % (8-40); MCH 29.4 pg (25.7-33.7); MCHC 32.7 g/dl (32.0-36.0); MEAN PLT VOLUME 9.5 fl (7.5-11.1); NEUT % 50.7 % (42.8-82.8); PLATELET COUNT 204 10^3/uL (134-434); RBC 4.51 M/mm3 (3.60-5.2); RDW 13.1 % (11.6-15.6); WHITE BLOOD COUNT 4.8 K/mm3 (4.0-10.0)
[2021-11-10 14:02] LABS: CHLORIDE 106 mmol/L (98-107); SODIUM 139 mmol/L (136-145)
[2021-11-10 14:04] LABS: CALCIUM 8.4 mg/dL (8.5-10.1)
[2021-11-10 14:05] LABS: ALBUMIN 3.5 g/dl (3.4-5.0); ANION GAP 10 MMOL/L (8-16); BLOOD UREA NITROGEN 13.9 mg/dL (7-18); CO2 24 mmol/L (21-32); GLUCOSE,RANDOM 229 mg/dL (74-106)
[2021-11-10 14:08] LABS: CREATININE 0.7 mg/dL (0.55-1.3); SGOT/AST 22 U/L (15-37); SGPT/ALT 56 U/L (13-61)
[2021-11-10 14:10] LABS: BILIRUBIN,TOTAL 1.1 mg/dL (0.2-1); TOT PROT 6.4 g/dl (6.4-8.2)
[2021-11-10 14:11] LABS: ALK PHOS 83 U/L (45-117)
[2021-11-10 16:03] VITALS: BP 128/70; PULSE 60
== END 2021-11-10 16:03 | disposition home or self-care (01) ==
LOC: JER 11:09
DX: R07.9 Chest pain, unspecified (principal)
CPT/HCPCS: 36415; 71045-TC-FY; 80053; 82550; 84484; 85025; 93005; 93010; 99284-25